=== PATIENT | female | born 1965 | race Caucasian/White ===

== ENCOUNTER 2017-06-07 05:31 | Day surgery (SDC) | payer OTHER ==
--- NOTE | 2017-06-03 20:24 | GHP ---
[f rep st] PREOP HISTORY AND PHYSICAL PLANNED PROCEDURE: Hysteroscopy with morcellation of endometrial tissue and endometrial ablation. PREOPERATIVE DIAGNOSIS: Menorrhagia. HISTORY OF PRESENT ILLNESS: Patient is a 52-year-old, 3, para 2011 who has a history of irregular cycles for the last 3 years. She is averaging bleeding every 3 months. Patient had an endometrial biopsy 2 years ago which was normal. Patient had a period in November of 2016 and then again started bleeding in 03/2017. She started spotting, and then Tuesday she had significant increase in bleeding, which saturated a super plus pads and had to wear Depends. Several days later, patient thought just wearing a pad was okay. She drove 45 minutes to work and soaked through her pad and pants and her car seat. Patient is still bleeding, but it is starting to slow down. Patient underwent a repeat endometrial biopsy which was negative. She had a pelvic ultrasound which showed a uterus measuring 9.8 x 7.1 x 7.84 cm with an endometrial thickness of 1.42 cm and a 1.3 x 1.3 x 1.6 cm submucosal fibroid. Normal ovaries were noted. A long discussion about management options was reviewed with the patient including expectant management, control pills, Mirena IUD, endometrial ablation, and a hysterectomy. Patient is electing to proceed with a hysteroscopy with morcellation of endometrial tissue. Patient was supposed to have the procedure done years ago; however, they just did a D and C and ended up not having the ablation. No clear reason was given for this. Patient has been properly consented. MEDICAL HISTORY: High blood pressure. MEDICATIONS: Lisinopril, calcium, vitamin D. SURGICAL HISTORY: Colonoscopy, endoscopic knee surgery, hysteroscopy. ALLERGIES: Aspartame, citrate, sodium, and MSG. 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 She denies tobacco or drug use. She does drink 4 alcoholic beverages a week. FAMILY MEDICAL HISTORY: Noncontributory. GYNECOLOGICAL HISTORY: She is a 3, para 2011. She has had 2 spontaneous vaginal deliveries. Patient denies any history of any abnormal Pap smears or sexually transmitted diseases. PHYSICAL EXAMINATION: VITAL SIGNS: Stable. GENERAL APPEARANCE: Alert and oriented x3. PSYCH: She has appropriate affect. NECK: Mobile and supple. HEART: Rate is regular regular. LUNGS: Clear to auscultation bilaterally. ABDOMEN: Soft, nondistended, nontender. EXTREMITIES: Reveal no calf tenderness or edema. : Pelvic exam reveals a mobile midposition uterus with no adnexal masses. Pelvic ultrasound is described above. REVIEW OF SYSTEMS: 10-point review of systems is negative with the exception of the above-mentioned pertinent positives. Patient's endometrial biopsy was negative. ASSESSMENT AND PLAN: 52-year-old, 3, para 2012, who has a history of irregular cycles and menorrhagia. She is electing to proceed with a hysteroscopy with morcellation of endometrial tissue and a fibroid and endometrial ablation. Because of patient's history of hysteroscopy and not doing an endometrial ablation, we discussed there is a slight possibility that there is some anatomic variant that did not allow that to happen that her previous provider did not convey to her. The ultrasound overall looks unremarkable so will attempt to do the procedure, and if it is not successful, discuss alternative plans. /[id number]/MODL MTDD
[2017-06-07] MEDS ORDERED: LIDOCAINE 1% 2 ML INJ ONE (05:50)
[2017-06-07] MEDS ORDERED: LR 1,000 ML IV ONE (06:06)
[2017-06-07] MEDS ORDERED: DOXYCYCLINE INJ 100 MG in NS 250 ML IV ONE (06:30)
--- NOTE | 2017-06-07 06:54 | PDANEPAE ---
ANE History of Present Illness 52 year old female for endometrial ablation vs D&C. ANE Past Medical History - Cardiovascular History Hx Hypertension: Yes Hx Arrhythmias: No Hx Chest Pain: No Hx Coronary Artery / Peripheral Vascular Disease: No Hx CHF / Valvular Disease: No Hx Palpitations: No Cardiovascular History Comment: takes fish oil due to occ PVC's [id number]. - Pulmonary History Hx COPD: No Hx Asthma/Reactive Airway Disease: No Hx Recent Upper Respiratory Infection: No Hx Oxygen in Use at Home: No Hx Sleep Apnea: No Sleep Apnea Screening Result - Last Documented: Negative - Neurologic History Hx Cerebrovascular Accident: No Hx Seizures: No Hx Dementia: No Neurologic History Comment: hx of migraines (related to food additives) - Endocrine History Hx Diabetes: No Hypothyroid: No Hyperthyroid: No Obesity: mild - Renal History Hx Renal Disorders: No - Liver History Hx Hepatic Disorders: No - Neurological & Psychiatric Hx Hx Neurological and Psychiatric Disorders: No - Cancer History Hx Cancer: No - Congenital Disorder History Hx Congenital Disorders: No - GI History GERD: no Hx Gastrointestinal Disorders: No Gastrointestinal History Comment: gluten -free diet - Other Health History Other Health History: 5 days of heavy menstrual bleeding. - Chronic Pain History Chronic Pain: No - Surgical History Prior Surgeries: scope L knee. endometrial resection of polyp ANE Review of Systems Review of systems is: negative Review of Systems: - Exercise capacity Exercise capacity: >=4 METS METS (RN): 4 METS ANE Patient History - Allergies Allergies/Adverse Reactions: No Known Allergies Allergy (Verified 05/03/17 13:54) - Home Medications Home medications: home medication list seen and reviewed Home Medications: RX: Lisinopril [Zestril 5 mg (*)] 07/28/15 [Last Taken 06/06/17 06:00] Fish Oil Waldo-3 Softgel 05/03/17 [Last Taken 06/03/17] IRON 05/03/17 [Last Taken 06/06/17 06:00] - NPO status NPO Status: no food or drink >8 hours NPO Since - Liquids (Date): 06/06/17 NPO Since - Liquids (Time): 18:30 NPO Since - Solids (Date): 06/06/17 NPO Since - Solids (Time): 18:30 - Anes Hx Anes Hx: no prior problems - Smoking Hx Smoking Status: Never smoked - Alcohol Use Alcohol Use: Occasionally - Family Anes Hx Family Anes Hx: none ANE Labs/Vital Signs - Vital Signs Vital Signs: reviewed preoperatively; see RN documention for details Blood Pressure: 126/83 Heart Rate: 78 Respiratory Rate: 16 O2 Sat (%): 94 Height: 170.18 cm Weight: 88.451 kg ANE Physical Exam - Airway Neck exam: FROM Mallampati Score: Class 1 Mouth exam: normal dental/mouth exam - Pulmonary Pulmonary: no respiratory distress - Cardiovascular Cardiovascular: regular rate and rhythym - ASA Status ASA Status: II ANE Anesthesia Plan Anesthesia Plan: GA w LMA (General as back-up plan. ), MAC Total IV Anesthesia: Yes
[2017-06-07] MEDS ORDERED: MIDAZOLAM 2 MG/2 ML VIAL IVP ONE (06:58)
[2017-06-07] MEDS ORDERED: SILVER NITRATE APPLICATOR 1 APPL TP ONE (07:05)
[2017-06-07] MEDS ORDERED: PROPOFOL/EMULSION 500 MG/50 ML BOTTLE IV ONE ×2 (07:06→07:59)
[2017-06-07] MEDS ORDERED: DEXAMETHASONE 4 MG/ML VIAL ONE (07:15)
[2017-06-07] MEDS ORDERED: fentaNYL 100 MCG/2 ML INJ ONE (07:15)
[2017-06-07] MEDS ORDERED: ONDANSETRON 4 MG/2 ML VIAL ONE (07:16)
[2017-06-07] MEDS ORDERED: BACITRACIN 50,000 UNITS/10 ML SYR IRR ONE (07:24)
--- NOTE | 2017-06-07 07:24 | PDHPUP ---
History & Physical Update H&P update statement: This history and physical update is based on an assessment of the patient which was completed after admission or registration (within 24 hours), but prior to the surgery/procedure. H&P update: H&P reviewed & patient examined, no change in patient's condition since H&P completed
[2017-06-07] MEDS ORDERED: fentaNYL 100 MCG/2 ML INJ IVP PRN (08:19)
[2017-06-07] MEDS ORDERED: LR 500 ML IV PRN (08:19)
[2017-06-07] MEDS ORDERED: ONDANSETRON 4 MG/2 ML VIAL IVP PRN (08:19)
[2017-06-07] MEDS ORDERED: NALOXONE HCL 0.4 MG/ML INJ IVP PRN (08:19)
[2017-06-07] MEDS ORDERED: HYDROCODONE/APAP 5/325 TAB PO PRN (08:19)
[2017-06-07] MEDS ORDERED: KETOROLAC 30 MG/1 ML SDV IVP ONE (08:39)
[2017-06-07] MEDS ORDERED: KETOROLAC 30 MG/1 ML SDV ONE (08:43)
--- NOTE | 2017-06-07 08:52 | POSTANESTH ---
Post Anesthetic Evaluation Cardiovascular Status: Normal, Stable, Similar to Pre-Op Cond Respiratory Status: Normal, Stable, Similar to Pre-op Cond. Level of Consciousness/Mental Status: Can Participate in Eval, Alert and Oriented Pain Control: Adequate, Prn Tx Ordered Nausea/Vomiting Control: Adequate, Prn Tx Ordered Complications Possibly Related to Anesthesia: None Noted
[2017-06-07 09:20] VITALS: PULSE 63; RESP 16; TEMP 98.2
--- NOTE | 2017-06-07 09:32 | GOP ---
[f rep st] OPERATIVE REPORT DATE OF OPERATION: 06/07/2017 SURGEON: Kaylan Starkey DO ANESTHESIA: MAC. ANESTHESIOLOGIST: Dr. Carney. PREOPERATIVE DIAGNOSIS: Menorrhagia. POSTOPERATIVE DIAGNOSIS: Menorrhagia. PROCEDURE PERFORMED: Hysteroscopy with morcellation of endometrial tissue and endometrial ablation. FINDINGS: Exam under anesthesia: 1. Mobile, midposition uterus with no adnexal masses. 2. Uterus sounded to 8 cm. Hysteroscopic findings: 1. Slightly thickened endometrium with probable posterior left submucosal fibroid. Hysteroscopy status post ablation: 1. Diffusely ablated endometrial tissue. SPECIMENS: Endometrial curettings. ESTIMATED BLOOD LOSS: 5 cc. INDICATIONS: The patient is a 52-year-old, 3, para 2-0-1-2 with a history of irregular cycle s for the last 3 years. She averages bleeding every 3 months, and her bleeding is very substantial. She had an endometrial biopsy, which was negative. We reviewed management options with the patient, and the patient is electing to proceed with a hysteroscopy with morcellation of the endometrial tiss ue and an endometrial ablation. Risks and benefits of the procedure were reviewed with the patient, and the patient was properly consented. DESCRIPTION OF PROCEDURE: The patient was taken to the operating room with intravenous fluids in samira ce. She was given 100 mg of doxycycline intravenously. She was then placed on the operating room ta ble in a dorsal supine position, where anesthesia was obtained. She was then repositioned into the d orsal lithotomy position with the Yellofin stirrups and prepped and draped in the normal sterile [facility] ion. Exam under anesthesia revealed a mobile, midposition uterus with no adnexal masses. A speculum was then placed in the patient's vagina. An Allis clamp was used to grasp the anterior lip of the c ervix. The cervix was then carefully dilated to allow for the introduction of an operative hysterosc ope. The hysteroscope was then introduced with fluid medium running. The endometrial cavity was adrien luated. There was a small submucosal fibroid on the posterior left wall of the uterus. Bilateral tu bal ostia were visualized, and the uterine lining appeared to be slightly thickened. Morcellation of the fibroid and the endometrial tissue was performed, and then the uterus sounded to 8.5 cm. Cervic al length was 3 cm. The Amy apparatus was then inserted, which passed the cavity assessment test , and an endometrial ablation was performed. The Amy was then withdrawn. The hysteroscope was t hen reintroduced. The diffusely ablated endometrial cavity was noted. Instruments were then removed from the patient's vagina, and no bleeding was noted. Patient was returned to the dorsal supine pos ition, where she was easily awoken from anesthesia. Sponge count was correct. The patient was trans ferred to recovery room in stable condition. /[id number]/MODL
[2017-06-07 10:24] VITALS: BP 136/84; O2SAT 96
== END 2017-06-07 10:23 | disposition home or self-care (01) ==
LOC: FSGY 05:31
PROVIDERS: ATTEND Obstetrics & Gynecology
PROC: 0UB98ZZ Excision of Uterus, Via Natural or Artificial Opening Endoscopic (ICD-10-PCS; principal; 2017-06-07 07:15)
PROC: 0U5B8ZZ Destruction of Endometrium, Via Natural or Artificial Opening Endoscopic (ICD-10-PCS; principal; 2017-06-07 07:15)
DX: N93.8 Other specified abnormal uterine and vaginal bleeding (principal); D25.9 Leiomyoma of uterus, unspecified; I10 Essential (primary) hypertension
CPT/HCPCS: 58561; 58563; C1782; J1100; J1885; J2250; J2405; J2704; J3010

== ENCOUNTER → 2018-02-22 | Outpatient (CLI) | payer OTHER | LOC: FIMAGING 16:00 | PROVIDERS: ATTEND Obstetrics & Gynecology | DX: Z12.31 Encounter for screening mammogram for malignant neoplasm of breast (principal) ==

== ENCOUNTER → 2019-03-05 | Outpatient (CLI) | payer OTHER | LOC: FIMAGING 14:07 ==